=== PATIENT | male | born 1950 | race Asian ===

== ENCOUNTER 2020-02-20 09:29 | Day surgery (SDC) | payer OTHER ==
[2020-02-14 16:25] VITALS: BMI 22.8
[~2020-02-20 09:29] MED LIST: LACTATED RINGERS 1,000 ML IV SCH
[2020-02-20 10:00] VITALS: TEMP 97.3
[2020-02-20] MEDS ORDERED: PROPOFOL 10 MG/ML 20 ML VIAL IV ONE (11:07)
--- NOTE | 2020-02-20 11:34 | P.PCN ---
Date of Procedure: 02/20/20 Description of Procedure: BRIEF HISTORY: Patient is a 69-year-old male presenting for outpatient colonoscopy for evaluation of GI bleed. Denies any abdominal pain, change in bowel habits. Did recently undergo surgical repair of a perforated ulcer in 09/2019. Remote history of colonoscopy approximately 10 years ago. PROCEDURE PERFORMED: Colonoscopy with polypectomy. PREOPERATIVE DIAGNOSIS: .GI bleed, remote history of colonoscopy approximately 10 years ago ESTIMATED BLOOD LOSS: Minimal. IV sedation per Anesthesia. PROCEDURE: After informed consent was obtained, the patient, was brought into the endoscopy unit. IV sedation was administered by Anesthesia under continuous monitoring. Digital rectal examination was normal. Initially the Olympus CF-190 flexible video colonoscope was then inserted in the rectum, gradually advanced into the cecum without any difficulty. Careful examination was performed as the scope was gradually being withdrawn. Ileocecal valve and the appendiceal orifice were visualized and appeared normal. Prep was excellent. Mucosa of the cecum, ascending colon, transverse colon, descending colon, sigmoid colon, and rectum appeared normal. A few scattered diverticula were noted in the sigmoid colon. 3 diminutive polyps measuring 1-2 mm in size removed from the sigmoid colon. Retroflexion was performed in the rectum and no lesions were seen, low-grade internal hemorrhoids noted . The patient tolerated the procedure well. IMPRESSION: 3 diminutive polyps removed from the sigmoid colon with cold forcep polypectomy. Mild sigmoid diverticulosis. Low-grade internal hemorrhoids. RECOMMENDATIONS: Findings of this examination were discussed with the patient. Okay to resume diet. Okay to resume medications. Await pathology from polypectomies. Would recommend repeat colonoscopy in 7 years given diminutive colon polyps, pending pathology from polypectomies.
[2020-02-20 11:38] VITALS: RESP 16
[2020-02-20 12:05] VITALS: BP 102/69; PULSE 76
== END 2020-02-20 12:15 | disposition home or self-care (01) ==
LOC: ORWHC2ENDO 09:29
PROVIDERS: ATTEND Internal Medicine
DX: D12.5 Benign neoplasm of sigmoid colon (principal); K57.30 Diverticulosis of large intestine without perforation or abscess without bleeding; K64.8 Other hemorrhoids; Z88.0 Allergy status to penicillin; Z98.890 Other specified postprocedural states; Z87.891 Personal history of nicotine dependence; I10 Essential (primary) hypertension; E78.5 Hyperlipidemia, unspecified; K21.9 Gastro-esophageal reflux disease without esophagitis; G40.89 Other seizures; Z79.899 Other long term (current) drug therapy
CPT/HCPCS: 45380; 88305; J2704

== ENCOUNTER 2020-11-05 07:55 | Emergency (ER) | payer OTHER ==
[2020-11-05 07:59] VITALS: TEMP 97.7
--- NOTE | 2020-11-05 08:14 | ED ---
Upper Extremity HPI - General Chief Complaint: Extremity Injury, Upper Stated Complaint: L Shoulder Pain Time Seen by Provider: 11/05/20 08:00 Source: patient, RN notes reviewed Mode of arrival: ambulatory Limitations: no limitations - History of Present Illness Initial Comments: This is a 70-year-old male presents emergency Department chief complaint left shoulder pain for last 6 months. Patient states that he had no exact injury. Patient states that it just started becoming sore and states it is worse with certain movements. Patient states that someone hugged him on Wednesday and states that he had increase in pain. Patient is right-hand dominant denies any neck or head pain. No chest pain or shortness of breath. Patient does not have any p ain at rest states only with certain movements. Denies any paresthesias pain starts his left shoulder secondary into his left bicep. - Related Data Home Medications Medication Instructions Recorded Confirmed No Known Home Medications 02/14/20 02/20/20 Allergies Allergy/AdvReac Type Severity Reaction Status Date / Time Penicillins Allergy Rash/Hives Verified 11/05/20 07:59 Review of Systems ROS Statement: Those systems with pertinent positive or pertinent negative responses have been documented in the HPI. ROS Other: All systems not noted in ROS Statement are negative. Past Medical History Past Medical History: Pneumonia Additional Past Medical History / Comment(s): 10/09/19 Had Perforated ulcer, influenza, double pneumonia. History of Any Multi-Drug Resistant Organisms: None Reported Additional Past Surgical History / Comment(s): Repair perforated stomach ulcer 09/2019. Cyst exc lower spine. Past Anesthesia/Blood Transfusion Reactions: No Reported Reaction Smoking Status: Former smoker Past Alcohol Use History: None Reported Past Drug Use History: None Reported - Past Family History Mother Family Medical History: No Reported History General Exam Limitations: no limitations General appearance: alert, in no apparent distress Head exam: Present: atraumatic, normocephalic, normal inspection Neck exam: Present: normal inspection, full ROM. Absent: tenderness, meningismus, lymphadenopathy Respiratory exam: Present: normal lung sounds bilaterally. Absent: respiratory distress, wheezes, rales, rhonchi, stridor Cardiovascular Exam: Present: regular rate, normal rhythm, normal heart sounds. Absent: systolic murmur, diastolic murmur, rubs, gallop, clicks Extremities exam: Present: other (Left shoulder is mild tenderness palpation pain with impingement apprehension. Patient pain with external rotation, pain with internal rotation behind back. Neurovascular intact) Back exam: Present: normal inspection, full ROM. Absent: tenderness, paraspinal tenderness, vertebral tenderness Neurological exam: Present: alert, oriented X3, CN II-XII intact, reflexes normal. Absent: motor sensory deficit Skin exam: Present: warm, dry, intact, normal color. Absent: rash Course Vital Signs 11/05/20 07:56 Temperature 97.7 F Pulse Rate 94 Respiratory 18 Rate Blood Pressure 173/89 O2 Sat by Pulse 97 Oximetry Medical Decision Making - Medical Decision Making X-rays shows some osteoarthritis. Patient symptoms more concerning for rotator cuff syndrome. Patient follow-up with orthopedics. Return parameters discussed. Disposition Clinical Impression: Rotator cuff syndrome of left shoulder Disposition: HOME SELF-CARE Condition: Stable Instructions (If sedation given, give patient instructions): Rotator Cuff Injury (ED) Additional Instructions: Please return to the Emergency Department if symptoms worsen or any other concerns. Is patient prescribed a controlled substance at d/c from ED?: No Referrals: [facility],Clinic [Primary Care Provider] - 1-2 days Javon Serna MD [STAFF PHYSICIAN] - 1-2 days Time of Disposition: 09:05
--- NOTE | 2020-11-05 08:28 | XR ---
EXAMINATION TYPE: XR shoulder complete LT DATE OF EXAM: 11/05/2020 Comparison: None Clinical History: 70-year-old male pain Findings: There is mild degenerative change at the AC joint with marginal spurring. Mild joint space narrowing on the Grashey view. Subacromial space is preserved. No tendinous or bursal calcification seen. No ac brooke fracture, subluxation, dislocation seen. Impression: Mild AC joint OA. No acute osseous abnormality seen.
[2020-11-05 09:23] VITALS: BP 155/79; PULSE 75; RESP 20
== END 2020-11-05 09:23 | disposition home or self-care (01) ==
LOC: EC 07:55
DX: M75.102 Unspecified rotator cuff tear or rupture of left shoulder, not specified as traumatic (principal); Z87.891 Personal history of nicotine dependence

== ENCOUNTER 2020-12-28 15:39 | Emergency (ER) | payer OTHER ==
[2020-12-28] MEDS ORDERED: MECLIZINE 12.5 MG TAB PO STA ×2 (16:03→17:52)
[2020-12-28 16:18] LABS: Basophils # (A) 0.1 k/uL (0-0.2); Basophils % (A) 1 %; Eosinophils # (A) 0.4 k/uL (0-0.7); Eosinophils % (A) 5 %; HCT 47.6 % (39.0-53.0); HGB 16.2 gm/dL (13.0-17.5); Lymphocytes # (A) 2.2 k/uL (1.0-4.8); Lymphocytes % (A) 31 %; MCH 30.5 pg (25.0-35.0); MCV 89.8 fL (80.0-100.0); Mean Platelet Volume 7.5; Monocytes # (A) 0.6 k/uL (0-1.0); Monocytes % (A) 9 %; Neutrophils # (A) 3.7 k/uL (1.3-7.7); Neutrophils % (A) 52 %; Platelet Count 192 k/uL (150-450); RDW 13.9 % (11.5-15.5); WBC 7.1 k/uL (3.8-10.6)
--- NOTE | 2020-12-28 16:20 | ED ---
Dizziness HPI - General Chief Complaint: Dizziness Stated Complaint: dizziness/light headed Time Seen by Provider: 12/28/20 15:45 Source: patient Mode of arrival: ambulatory Limitations: no limitations - History of Present Illness Initial Comments: 's is a 70-year-old male with a history of peptic ulcer disease and perforated ulcer in the past presents emergency department for 2 weeks worth of dizziness and diaphoresis. The patient states that he's had intermittent episodes of dizziness he states is worse with certain head movements and position changes. He states that he also has been having intermittent episodes of diaphoresis. He states that diaphoresis seems to be random as well however sometimes is related to exertion but also states he gets sweaty when he lays down at night and does not exert himself. He denies any difficult he was speech or swallowing. No focal weakness in arm or leg. No numbness or tingling. He denies any chest pain or shortness of breath. He reportedly saw his clasp machine operator earlier in the week and is scheduled for a stress test later in the month. He states that he also has a CAT scan scheduled and some [facility] however when his symptoms persisted decided come emergency department for further evaluation. Patient denies any other acute complaints. - Related Data Previous Rx's Medication Instructions Recorded Meclizine [Antivert] 25 mg PO TID PRN #20 tab 12/28/20 Allergies Allergy/AdvReac Type Severity Reaction Status Date / Time Penicillins Allergy Rash/Hives Verified 12/28/20 15:43 Review of Systems ROS Statement: Those systems with pertinent positive or pertinent negative responses have been documented in the HPI. ROS Other: All systems not noted in ROS Statement are negative. Past Medical History Past Medical History: Pneumonia Additional Past Medical History / Comment(s): 10/09/19 Had Perforated ulcer, influenza, double pneumonia, History of Any Multi-Drug Resistant Organisms: None Reported Additional Past Surgical History / Comment(s): Repair perforated stomach ulcer 09/2019. Cyst exc lower spine. Past Anesthesia/Blood Transfusion Reactions: No Reported Reaction Smoking Status: Former smoker Past Alcohol Use History: None Reported Past Drug Use History: None Reported - Past Family History Mother Family Medical History: No Reported History General Exam - General Exam Comments Initial Comments: Constitutional: Awake alert Appears comfortable Head: Normocephalic atraumatic Eyes: no conjunctival injection No scleral icterus EOMI, no nystagmus, pupils are 4 mm and reactive bilaterally Neck: No JVD Supple Heart: Regular rate rhythm normal S1-S2 no murmurs Lungs: Clear to auscultation bilaterally No wheezing No rales Abdomen: Soft nondistended nontender Extremities: Non edematous DP pulses intact Radial pulses intact Neuro: A&Ox3, cranial nerves II through XII are grossly intact, 5 out of 5 strength in upper and lower extremities bilateral, normal finger to nose and heel to spencer testing, negative Katy-Hallpike bilaterally No focal neurologic deficits Psych: Appropriate mood and affect Limitations: no limitations Course Vital Signs 12/28/20 12/28/20 12/28/20 15:41 18:01 18:07 Temperature 97.4 F L 98.4 F 97.9 F Pulse Rate 73 75 71 Respiratory 16 18 16 Rate Blood Pressure 119/70 110/58 128/79 O2 Sat by Pulse 96 96 98 Oximetry EKG Findings - EKG Comments: EKG Findings:: EKG is showing sinus bradycardia with a rate of 56. There are no abnormal ST 7 changes or tumors. QTC is 413. Other intervals normal. No ectopy. Medical Decision Making - Medical Decision Making This is a 70-year-old male who came to the emergency department for the above symptoms. Vision and no focal neurologic findings on examination. He was not diaphoretic in the emergency department. EKG was reviewed and unremarkable. Full workup done which did show an elevation in his creatinine however no evidence for cardiac etiology with a troponin that was negative. I suspect that the patient's been having symptoms for over 2 weeks that is correct markers may be elevated. TSH was within normal limits. CT of the head was unremarkable as well. He seemed to improve after Antivert and going to send him home with some of this as well. He has good follow-up and has some testing later in the week including MRI of his left shoulder and a CT of his chest. He also has a stress test scheduled for the end of the month. I told the patient that if he devel oped any worsening or changing symptoms she can return emergency Department. Otherwise follow-up closely with his primary doctor in the next few days and get these test performed. All questions were answered. - Lab Data Result diagrams: 12/28/20 16:09 12/28/20 16:09 Lab Results 05/04/1212/28/20 12/28/20 Range/Units 16:09 16:09 16:09 WBC 7.1 (3.8-10.6) k/uL RBC 5.30 (4.30-5.90) m/uL Hgb 16.2 (13.0-17.5) gm/dL Hct 47.6 (39.0-53.0) % MCV 89.8 (80.0-100.0) fL MCH 30.5 (25.0-35.0) pg MCHC 34.0 (31.0-37.0) g/dL RDW 13.9 (11.5-15.5) % Plt Count 192 (150-450) k/uL MPV 7.5 Neutrophils % 52 % Lymphocytes % 31 % Monocytes % 9 % Eosinophils % 5 % Basophils % 1 % Neutrophils # 3.7 (1.3-7.7) k/uL Lymphocytes # 2.2 (1.0-4.8) k/uL Monocytes # 0.6 (0-1.0) k/uL Eosinophils # 0.4 (0-0.7) k/uL Basophils # 0.1 (0-0.2) k/uL PT 11.1 (9.0-12.0) sec INR 1.1 (<1.2) APTT 25.6 (22.0-30.0) sec Sodium 141 (137-145) mmol/L Potassium 4.8 (3.5-5.1) mmol/L Chloride 107 (98-107) mmol/L Carbon Dioxide 25 (22-30) mmol/L Anion Gap 9 mmol/L BUN 15 (9-20) mg/dL Creatinine 1.72 H (0.66-1.25) mg/dL Est GFR (CKD-EPI)AfAm 46 (>60 ml/min/1.73 sqM) Est GFR (CKD-EPI)NonAf 40 (>60 ml/min/1.73 sqM) Glucose 95 (74-99) mg/dL Calcium 9.7 (8.4-10.2) mg/dL Magnesium 1.7 (1.6-2.3) mg/dL Total Bilirubin 0.7 (0.2-1.3) mg/dL AST 28 (17-59) U/L ALT 20 (4-49) U/L Alkaline Phosphatase 45 (38-126) U/L Troponin I (0.000-0.034) ng/mL Total Protein 7.1 (6.3-8.2) g/dL Albumin 4.1 (3.5-5.0) g/dL TSH 1.370 (0.465-4.680) mIU/L 12/28/20 Range/Units 16:09 WBC (3.8-10.6) k/uL RBC (4.30-5.90) m/uL Hgb (13.0-17.5) gm/dL Hct (39.0-53.0) % MCV (80.0-100.0) fL MCH (25.0-35.0) pg MCHC (31.0-37.0) g/dL RDW (11.5-15.5) % Plt Count (150-450) k/uL MPV Neutrophils % % Lymphocytes % % Monocytes % % Eosinophils % % Basophils % % Neutrophils # (1.3-7.7) k/uL Lymphocytes # (1.0-4.8) k/uL Monocytes # (0-1.0) k/uL Eosinophils # (0-0.7) k/uL Basophils # (0-0.2) k/uL PT (9.0-12.0) sec INR (<1.2) APTT (22.0-30.0) sec Sodium (137-145) mmol/L Potassium (3.5-5.1) mmol/L Chloride (98-107) mmol/L Carbon Dioxide (22-30) mmol/L Anion Gap mmol/L BUN (9-20) mg/dL Creatinine (0.66-1.25) mg/dL Est GFR (CKD-EPI)AfAm (>60 ml/min/1.73 sqM) Est GFR (CKD-EPI)NonAf (>60 ml/min/1.73 sqM) Glucose (74-99) mg/dL Calcium (8.4-10.2) mg/dL Magnesium (1.6-2.3) mg/dL Total Bilirubin (0.2-1.3) mg/dL AST (17-59) U/L ALT (4-49) U/L Alkaline Phosphatase (38-126) U/L Troponin I <0.012 (0.000-0.034) ng/mL Total Protein (6.3-8.2) g/dL Albumin (3.5-5.0) g/dL TSH (0.465-4.680) mIU/L Disposition Clinical Impression: Vertigo, Sweating Disposition: HOME SELF-CARE Condition: Stable Instructions (If sedation given, give patient instructions): Dizziness (ED) Prescriptions: Meclizine [Antivert] 25 mg PO TID PRN #20 tab PRN Reason: dizzy Is patient prescribed a controlled substance at d/c from ED?: No Referrals: [facility],Clinic [Primary Care Provider] - 1-2 days
[2020-12-28 16:29] LABS: INR 1.1 (<1.2); Partial Thromboplastin Time 25.6 sec (22.0-30.0); Prothrombin Time 11.1 sec (9.0-12.0)
[2020-12-28 16:31] LABS: Albumin 4.1 g/dL (3.5-5.0); Calcium 9.7 mg/dL (8.4-10.2); Magnesium 1.7 mg/dL (1.6-2.3); Potassium 4.8 mmol/L (3.5-5.1); Total Bilirubin 0.7 mg/dL (0.2-1.3); Total Protein 7.1 g/dL (6.3-8.2)
--- NOTE | 2020-12-28 16:36 | CT ---
EXAMINATION TYPE: CT brain wo con DATE OF EXAM: 12/28/2020 COMPARISON: None HISTORY: Dizziness, lightheaded. CT DLP: 1139.4 mGycm Automated exposure control for dose reduction was used. FINDINGS: The ventricles, basal cisterns and sulci over the convexities are moderately enlarged consistent with moderate generalized atrophy. There is no mass effect or shift of midline structures. There is no acute intra or extra-axial hemorrhage. No abnormal density is seen throughout the brain p arenchyma. Grossly the posterior fossa is unremarkable. The intraorbital contents appear normal and symmetric. The calvarium is intact. Paranasal sinuses and mastoid air cells are well aerated. Impression: Generalized atrophy appropriate for the patient's age. There is no acute bleed or mass effect.
[2020-12-28 18:08] VITALS: BP 128/79; PULSE 71; RESP 16; TEMP 97.9
== END 2020-12-28 18:02 | disposition home or self-care (01) ==
LOC: EC 15:39 → SUPCPDRO 15:39 → EC 18:02
DX: R42 Dizziness and giddiness (principal); R61 Generalized hyperhidrosis; Z88.0 Allergy status to penicillin; Z87.891 Personal history of nicotine dependence
CPT/HCPCS: 36415; 70450; 80053; 83735; 84443; 84484; 85025; 85610; 85730; 93005; 99284

== ENCOUNTER → 2021-01-02 | Outpatient (CLI) | payer OTHER ==
--- NOTE | 2021-01-02 07:45 | US ---
EXAMINATION TYPE: US duplex aorta DATE OF EXAM: 01/02/2021 COMPARISON: NONE CLINICAL HISTORY: Z87.891 Personal history of nicotine dependence. screening EXAM MEASUREMENTS: Abdominal Aorta: Proximal: 1.7 x 1.5cm Mid: 1.5 x 1.3cm Distal: 1.9 x 2.0cm Bifurcation: RT: 1.1 x 0.9cm LT: 1.0 x 0.8cm No evidence of AAA at this time. slight bulging noted distally IMPRESSION: No evidence of AAA at this time.
--- NOTE | 2021-01-03 13:29 | CTL ---
EXAMINATION TYPE: CT Low Dose Lung DATE OF EXAM ORDERED: 01/02/2021 HISTORY: Z 87.891. Lung cancer screening CT DLP: [address] CTDI: 2.03 mGy Automated exposure control for dose reduction was used. SCREENING VISIT: 1 COMPARISON: Chest x-ray 01/22/2020 TECHNIQUE: Low dose computed tomography scan was performed through the chest at 1 mm thick sections a nd reconstructed images in the coronal plane at [address] DIAGNOSTIC QUALITY: Satisfactory FINDINGS: There is a left upper lobe lung mass present with cavitary appearance abutting the fissure with some spiculated margins extending to the left lateral pleural margin overall measuring approximately 3.8 c m in transverse dimension by 2.3 cm x 2.5 cm in cephalad to caudal dimension in the left upper lobe. Spiculations also extending medially to the mediastinum. Additionally in the lingula there is a soft tissue mass with spiculated margins extending to the pleura and mediastinum measuring approximately 4 .7 cm in AP dimension by 4.5 centimeters in the transverse dimension by 3.7 cm in cephalad to caudal dimension. There are multiple lung nodules present, right lower lobe, axial image 205 shows a soft tissue nodule measuring 8 mm in the subpleural location, within the right lower lobe on axial image #180 to and 18 1 there is a nodule measuring 14 mm with some central cavitation, left lower lobe nodule shows possib le central cavitation and measures 9 mm to 10 mm and axial image 180. Right upper lobe adjacent to th e fissure medially axial image 131 shows a cavitary nodule measuring 8 mm, axial image 121 shows a ce ntral cavitary lesion measuring 8 to 9 mm. Cavitary lesion with pleural extension on axial image #111 measures 15 mm. Right upper lobe axial image 78 shows a nodule measuring 9 mm in the right upper lob e. Possible smaller nodule axial image 86 adjacent to the superior vena cava. Right lower lobe shows a spiculated nodule axial image 2:15 measuring 1 cm abutting the major fissure. Left lower lobe nodul e on axial image 162 measures 6 mm, additional nodule axial image 167 show central cavitation and giovani sures 5 mm, axial image 237 shows a nodule measuring 6 mm in the right lower lobe. LUNGS: COPD: Severity: Moderate Fibrosis: Severity: Mild Lymph nodes: None Other findings: RIGHT PLEURAL SPACE: Effusion: None Calcification: None Thickening: None Pneumothorax: None LEFT PLEURAL SPACE: Effusion: None Calcification: None Thickening: None Pneumothorax: None HEART: Heart Size: Normal Coronary calcification: Mild Pericardial effusion: Minimal pericardial fluid OTHER FINDINGS: Upper abdomen: Small hiatal hernia is noted. Bony thorax: There are degenerative disc changes. 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
== END | disposition home or self-care (01) ==
LOC: RADUSWWP 07:10
DX: Z12.2 Encounter for screening for malignant neoplasm of respiratory organs (principal); Z13.6 Encounter for screening for cardiovascular disorders; Z87.891 Personal history of nicotine dependence
CPT/HCPCS: 71271; 93979

== ENCOUNTER → 2021-01-02 | Outpatient (CLI) | payer OTHER | END | disposition home or self-care (01) | LOC: RADMRIMAIN 07:33 | PROVIDERS: ATTEND Nurse Practitioner Acute Care | DX: Z53.9 Procedure and treatment not carried out, unspecified reason (principal) ==

== ENCOUNTER → 2021-01-10 | Outpatient (CLI) | payer OTHER ==
--- NOTE | 2021-01-13 10:24 | PE ---
EXAMINATION TYPE: PET CT fusion skull to thigh DATE OF EXAM: 01/10/2021 COMPARISON: Low-dose lung screening CT 8 days ago HISTORY: Lung mass, abnormal CT. TECHNIQUE: Following the intravenous administration of 9.81. mCi of F-18 FDG, whole body images are performed from the skull base to the midthigh. Images are reviewed on the computer in the coronal, a xial, and sagittal planes. Reconstructed rotating images are created on independent workstation and reviewed on the computer. A localization and attenuation correction CT is performed in conjunction with the PET scan. Blood glucose level equals 91 SCAN: Initial Scan FINDINGS: SKULL BASE AND NECK: No areas of abnormal hypermetabolic uptake. CHEST, MEDIASTINUM, AND HILAR REGION: Redemonstration of mild underlying emphysematous change. Persis tent thick-walled cavitary posterior left upper lobe 3.6 x 2.1 cm lesion axial image 77, max SUV is 3 .93. More suspicious anterior left midlung lobulated 4.6 x 4.1 cm hypermetabolic mass axial image 95, max SUV is 7.03. There are 3 suspicious right lung nodules redemonstrated one with cavitation axial images 84, 102, an d 110 that are near 1.0 cm in size. No suspicious hypermetabolic uptake. Abnormal 3.2 x 2.1 cm AP window hypermetabolic lymph note axial image 82, max SUV is 4.47. No additional areas of abnormal hypermetabolic uptake. ABDOMEN AND PELVIS: Normal excretion. No adrenal masses. No areas of abnormal hypermetabolic uptake. OSSEOUS STRUCTURES: Increased uptake left shoulder region presumed postinflammatory. Correlate clinic ally. No areas of suspicious increased hypermetabolic uptake. OTHER CT: Nasal septum slightly deviated to left of midline. Some coronary artery calcification redem onstrated. Moderate calcified plaque of the aorta extends into branch vessels. Enlarged prostate consistent with BPH. Moderate disc space narrowing L2-L3 level. Mild to moderate calcified plaque of the aorta extends int o branch vessels IMPRESSION: Anterior left midlung mass with hypermetabolic enlarged AP window lymph node consistent w ith neoplasm. Other findings could be related to high stage neoplasm, bilateral multilobar involvemen t versus possible infectious etiology/septic embolism on background neoplasm. No metastatic disease o utside the thorax noted.
== END | disposition home or self-care (01) ==
LOC: RADPETMAIN 14:44
PROVIDERS: ATTEND Internal Medicine
DX: R91.8 Other nonspecific abnormal finding of lung field (principal)
CPT/HCPCS: 78815; A9552

== ENCOUNTER → 2021-02-07 | Outpatient (CLI) | payer OTHER ==
--- NOTE | 2021-02-07 16:34 | CT ---
EXAMINATION TYPE: CT brain wo con DATE OF EXAM: 02/07/2021 COMPARISON: 12/28/2020 INDICATION: Dizziness and giddiness. DLP: 1195.10 mGycm, Automated exposure control for dose reduction was used. CONTRAST: None CT of the brain is performed utilizing 3 mm thick sections through the posterior fossa and 3 mm thick sections through the remaining calvarium. Study is performed within 24 hours of arrival to the hosp ital. No abnormal hyperdensity is present to suggest an acute intracranial hemorrhage. No mass lesion is evident. No acute infarcts are evident. There is a small rounded hypodensity within the left brainstem, series 3 image 19 not clearly identified previous. Small lacunar infarct be considered. However, this may b e artifact. Consider MRI brain for additional evaluation. Ventricles and sulci are mildly prominent for the patient age. Paranasal sinuses and mastoid air cells within the [id number] are clear. IMPRESSIONS: 1. Small hypodensity within the left brainstem may be an artifact. Lacunar infarct could be conside red. MRI could be performed for additional evaluation. A Jaroso level critical message alert has been initiated for Figueroa Aguilar MD via the [employer] Critical Results System on 02/07/2021 4:32 PM. This message alert has been sent to Figueroa Aguilar MD via the preferences provided by the clinician for the receipt of Radiology Critical Findings. Message ID [id number].
== END | disposition home or self-care (01) ==
LOC: RADCTMAIN 14:04
PROVIDERS: ATTEND Internal Medicine
DX: R42 Dizziness and giddiness (principal)
CPT/HCPCS: 70450; 82565; 84520

== ENCOUNTER 2021-02-28 09:59 | Day surgery (SDC) | payer OTHER ==
[2021-02-27 10:34] VITALS: BMI 26.7
[~2021-02-28 09:59] MED LIST changes: +ALBUTEROL NEB (CONC) 2.5 MG/0.5 ML INHALATION ONE; +LIDOCAINE 2% (PF) 20 MG/ML 5 ML VIAL INHALATION ONE; +LIDOCAINE VISCOUS 300 MG/15 ML CUP MUCOUS MEM ONE; +SODIUM CHLORIDE 0.9% 1,000 ML IV SCH
--- NOTE | 2021-02-28 12:04 | CT ---
EXAMINATION TYPE: CT Chest luis Ernst Protocol DATE OF EXAM: 02/28/2021 COMPARISON: Head CT dated 01/10/2021 HISTORY: Bronchial navigation. CT DLP: 636.[address] of the chest was performed with lung and mediastinal window settings submitted. The la ck of contrast limits evaluation of the vascular, mediastinal and parenchymal structures including th e upper abdomen. LUNGS: Left upper lobe pulmonary mass measures 3.8 x 2.3 cm and demonstrates internal cavitation. Add itional mass is noted left upper lobe anteriorly perihilar region measuring 5.0 x 4.3 cm. Postobstruc tive pneumonitis noted. Right lower lobe pulmonary nodule measuring 1.2 cm. Right lower lobe pulmonar y nodule also measures 1.6 cm. Right upper lobe pulmonary nodule pleural-based and measures 1.7 cm. R ight apical nodule measures 9 mm. MEDIASTINUM/ANGY: Thoracic aorta is of normal caliber with limited evaluation given lack of contrast . The heart is not enlarged. Conglomerate mass AP window is compatible with adenopathy measuring 2.6 x 2.2 cm. UPPER ABDOMEN: No significant abnormality is seen. OTHER: No significant other abnormality. IMPRESSION: 1. Multiple pulmonary nodules and masses compatible with malignancy either primary or secondary in n ature. AP window adenopathy as noted.
[2021-02-28] MEDS ORDERED: fentaNYL (PF) 50 MCG/ML 2 ML AMP ONE (13:16)
[2021-02-28] MEDS ORDERED: SUCCINYLCHOLINE CHLORIDE 100 MG/5 ML SYR IV ONE (13:16)
[2021-02-28] MEDS ORDERED: ePHEDrine SULFATE/0.9% NACL/PF 50 MG/5 ML SYRINGE IV ONE (13:16)
[2021-02-28] MEDS ORDERED: LIDOCAINE 1% INJ 10MG/ML (20 ML MDV) ONE (13:16)
[2021-02-28] MEDS ORDERED: PROPOFOL 10 MG/ML 20 ML VIAL IV ONE (13:16)
--- NOTE | 2021-02-28 14:12 | P.PCN ---
Date of Procedure: 02/28/21 Preoperative Diagnosis: Left upper lobe mass 2, mediastinal lymphadenopathy Postoperative Diagnosis: Left upper lobe mass Anesthesia: GETA Surgeon: Shyanne Colbert Estimated Blood Loss (ml): 0 Pathology: other Condition: stable Disposition: same day Operative Findings: 1 Navigational bronchoscopy 2 transbronchial biopsy of the left upper lobe mass 1 (anterior segment), left upper lobe mass 2 (apicoposterior segment) 3 transbronchial brushing of the left upper lobe mass 1/anterior segment and left upper lobe mass to/apicoposterior segment 4 transbronchial needle aspirate of right paratracheal lymph node, station 4L 5 bronchial lavage of the left upper lobe Anesthesia: GETA Surgeon: Shyanne Colbert Tuck Pointer Helper #1:Ariela Atkinson Estimated Blood Loss (ml): 0 Pathology: other Condition: stable Disposition: same day Operative Findings: Indication, left upper lobe mass, left paratracheal lymph node station for L This procedure was done under general anesthesia. There is a navigational bronchoscopy. The patient initially had a CAT scan of the chest utilizing the [employer] protocol. The images were uploaded into the software and the right middle lobe mass was identified and appropriate calibrations and mapping was done. Following that, all of this information was uploaded into the [employer] navigational tower. The patient was brought into the endoscopy suite. The patient was intubated by ADMINISTRATIVE UNDERWRITER. The patient had a 8 ET tube placed and she was secured in place. Following that, flexible bronchoscope was introduced through the orotracheal tube and an airway inspection was done. The visualized airways included the mid and the distal trachea, bilateral mainstem bronchi, right upper lobe bronchus, bronchus intermedius, right middle lobe and right lower lobe bronchus and the various 10 segments on the right. Bronchoscope was moved to the left and the visualized airways included the left mainstem bronchus, left upper lobe bronchus and left lower lobe bronchus and the various 8 segments on the left. No evidence of any endobronchial lesions or tumors. No foreign bodies. No mucosal abnormalities identified. Using navigational guidance, the bronchoscope was directed to the left upper lobe. Using a navigational forceps, transbronchial biopsies of the left upper lobe anterior and left upper lobe apical posterior masses were done with great accuracy. Several biopsies were obtained. Following that, transbronchial transbronchial brushings of the the same lesions was done using navigational guidance. Following that, bronchoscope was moved to the distal trachea and using a 22 -gauge histology WORLEY needle biopsy of the left paratracheal lymph node was done, station 4 L. Total of 2 passes were taken. At the completion of the procedure, endobronchial lavage of the left upper lobe was done. The bronchoscope was wedged in the apical segment of the left upper lobe and a total of 80 mL's of fluid was administered and 20 mL was suctioned back. Aspirate was nonbloody. No complications. No evidence of an endobronchial bleeding. Therapeutic airway suctioning was done. Bronchoscope was removed. Patient was extubated and transferred to recovery in stable condition. Chest x-rays to follow to rule out any complications or pneumothorax.
[2021-02-28] MEDS ORDERED: SODIUM CHLORIDE 0.9% 500 ML 500 ML IV ONE (14:15)
[2021-02-28 14:34] VITALS: TEMP 96.8
--- NOTE | 2021-02-28 14:51 | XR ---
EXAMINATION TYPE: XR chest 1V portable DATE OF EXAM: 02/28/2021 HISTORY: post navigational bronch COMPARISON: None. TECHNIQUE: Single view of the chest is submitted. FINDINGS: Demonstrated are scattered senescent parenchymal change. Pulmonary nodules and masses described previously. No evidence for pneumothorax. The heart is stable. Hilar and mediastinal structures are within normal limits. Degenerative changes are seen of the dorsal spine. IMPRESSION: 1. Pulmonary nodules and masses described previously. No evidence for pneumothorax.
[2021-02-28 14:53] VITALS: RESP 16
[2021-02-28 15:32] VITALS: BP 146/81; PULSE 63
== END 2021-02-28 16:10 | disposition home or self-care (01) ==
LOC: ORWHC2ENDO 09:59
PROVIDERS: ATTEND Internal Medicine Critical Care Medicine
DX: Z88.0 Allergy status to penicillin (principal); K21.9 Gastro-esophageal reflux disease without esophagitis; J44.9 Chronic obstructive pulmonary disease, unspecified; I10 Essential (primary) hypertension; Z87.11 Personal history of peptic ulcer disease; Z87.09 Personal history of other diseases of the respiratory system; Z87.01 Personal history of pneumonia (recurrent); Z86.19 Personal history of other infectious and parasitic diseases; Z87.891 Personal history of nicotine dependence; Z79.899 Other long term (current) drug therapy
CPT/HCPCS: 87798 ×3; 87496; 87498; 88104; 87529; 88108; 88305; 88173; 88342; 87252; 87502; 87634; 88341; 87070; 87205; 87116; 87102; 87206; 71045; 71250; 31623; 31628; 31629; 31624; 31627; J2001; J3010; J0330; J2704; 31625; 31633

== ENCOUNTER → 2021-03-01 | Outpatient (CLI) | payer OTHER | END | disposition home or self-care (01) | DX: R42 Dizziness and giddiness (principal) ==

== ENCOUNTER 2021-10-06 12:03 | Inpatient (IN) | payer OTHER, MEDICARE ==
[2021-10-06] MEDS ORDERED: SODIUM CHLORIDE 0.9% 1,000 ML IV STA (16:26)
[2021-10-06] MEDS ORDERED: ONDANSETRON 4 MG/2 ML VIAL IVP STA (16:26)
[2021-10-06] MEDS ORDERED: SODIUM CHLORIDE 0.9% 500 ML 500 ML IV ONE (16:27)
--- NOTE | 2021-10-06 16:38 | ED ---
General Adult HPI - General Chief complaint: Weakness Stated complaint: weak/coughing up blood Time Seen by Provider: 10/06/21 16:17 Source: patient, family Mode of arrival: ambulatory Limitations: no limitations - History of Present Illness Initial comments: 71 year-old male patient diagnosed with adenocarcinoma of the left lung in , presents to the emergency department for evaluation of weakness, hemoptysis, and vomiting. Patient states that over the last 10 days he has become progressively more weak. He has been vomiting and is unable to keep down food or fluids. He reports dark "orange" colored urine. States he has been having diarrhea. Reports mild intermittent right upper quadrant abdominal pain. States he has been having bloody sputum with cough. Patient has not received treatment for his cancer, I believe he did have a consultation with Dr. Chi at [facility] at one point. He denies taking any medication for his symptoms. Denies fever or chills. States his mouth is extremely dry and he is very thirsty. He is considering being started on hospice. - Related Data Home Medications Medication Instructions Recorded Confirmed Diphenoxylate HCl/Atropine 1 tab PO QID PRN 10/06/21 10/06/21 [Lomotil 2.5-0.025 mg Tablet] Omeprazole 40 mg PO DAILY PRN 10/06/21 10/06/21 Ondansetron [Zofran] 4 mg PO QID PRN 10/06/21 10/06/21 Allergies Allergy/AdvReac Type Severity Reaction Status Date / Time Penicillins Allergy Rash/Hives Verified 10/06/21 16:52 Review of Systems ROS Statement: Those systems with pertinent positive or pertinent negative responses have been documented in the HPI. ROS Other: All systems not noted in ROS Statement are negative. Past Medical History Past Medical History: COPD, GERD/Reflux, Hypertension, Pneumonia Additional Past Medical History / Comment(s): states "lung mass" 10/09/19 Had Perforated ulcer, influenza, double pneumonia, lung and prostate cancer History of Any Multi-Drug Resistant Organisms: None Reported Additional Past Surgical History / Comment(s): Repair perforated stomach ulcer 09/2019. Cyst exc lower spine. Past Anesthesia/Blood Transfusion Reactions: No Reported Reaction Past Psychological History: Anxiety Smoking Status: Former smoker Past Alcohol Use History: None Reported Past Drug Use History: None Reported - Past Family History Mother Family Medical History: No Reported History General Exam Limitations: no limitations General appearance: alert, in no apparent distress, other (This is a well- developed, thin appearing adult male in no acute distress.) Eye exam: Present: PERRL, EOMI, scleral icterus (Bilateral). Absent: conjunctival injection, periorbital swelling ENT exam: Present: normal exam, normal oropharynx, mucous membranes dry Respiratory exam: Present: normal lung sounds bilaterally. Absent: respiratory distress, wheezes, rales, rhonchi, stridor Cardiovascular Exam: Present: normal rhythm, tachycardia, normal heart sounds. Absent: systolic murmur, diastolic murmur, rubs, gallop, clicks GI/Abdominal exam: Present: soft, normal bowel sounds. Absent: distended, tenderness, guarding, rebound, rigid Neurological exam: Present: alert, oriented X3, CN II-XII intact Psychiatric exam: Present: normal affect, normal mood Skin exam: Present: warm, dry, intact, normal color. Absent: rash Course Vital Signs 10/06/21 12:12 Temperature 98 F Pulse Rate 129 H Respiratory 18 Rate Blood Pressure 125/74 O2 Sat by Pulse 92 L Oximetry Medical Decision Making - Medical Decision Making 71-year-old male patient diagnosed with adenocarcinoma of the left long December 2020 presents for evaluation of increased weakness and vomiting over the last 10 days. Physical examination did reveal scleral icterus and jaundice. Labs reviewed and did reveal an INR 1.2, sodium 136, potassium 5.4, CO2 14, BUN 30, creatinine 2.33, lactic acid 4.9, bilirubin 8.0, AST 399, a LT 165, alk phos 1060. Ultrasound of the right upper quadrant was obtained and did show diffuse heterogeneity of the liver consistent with hepatic metastatic disease. Gallbladder wall thickening consistent with cholecystitis. I did discuss the findings and results with the patient informed him that his cancer is most likely spread to his rib bone and his liver. Patient again reaffirms that he would like to start hospice. He does not want to have surgery to have his gallb ladder taken out. He does not want treatment for his cancer. He does not feel comfortable going home, states he cannot care for himself. He would like to be placed in an ECF. My attending is Dr. Sunshine. - Lab Data Result diagrams: 10/06/21 17:21 10/06/21 17:21 Lab Results 10/06/21 10/06/21 10/06/21 Range/Units 17:21 17:21 17:21 WBC 9.3 (3.8-10.6) k/uL RBC 5.45 (4.30-5.90) m/uL Hgb 16.5 (13.0-17.5) gm/dL Hct 52.2 (39.0-53.0) % MCV 95.7 (80.0-100.0) fL MCH 30.2 (25.0-35.0) pg MCHC 31.5 (31.0-37.0) g/dL RDW 16.2 H (11.5-15.5) % Plt Count 193 (150-450) k/uL MPV 8.7 Neutrophils % 81 % Lymphocytes % 10 % Monocytes % 7 % Eosinophils % 1 % Basophils % 0 % Neutrophils # 7.6 (1.3-7.7) k/uL Lymphocytes # 0.9 L (1.0-4.8) k/uL Monocytes # 0.6 (0-1.0) k/uL Eosinophils # 0.1 (0-0.7) k/uL Basophils # 0.0 (0-0.2) k/uL Anisocytosis Slight PT 12.3 H (9.0-12.0) sec INR 1.2 H (<1.2) APTT 44.6 H (22.0-30.0) sec Sodium 136 L (137-145) mmol/L Potassium 5.4 H (3.5-5.1) mmol/L Chloride 102 (98-107) mmol/L Carbon Dioxide 14 L (22-30) mmol/L Anion Gap 20 mmol/L BUN 30 H (9-20) mg/dL Creatinine 2.33 H (0.66-1.25) mg/dL Est GFR (CKD-EPI)AfAm 32 (>60 ml/min/1.73 sqM) Est GFR (CKD-EPI)NonAf 28 (>60 ml/min/1.73 sqM) Glucose 90 (74-99) mg/dL Lactic Ac Sepsis Rflx Plasma Lactic Acid Gustavo (0.7-2.0) mmol/L Calcium 9.8 (8.4-10.2) mg/dL Magnesium 2.2 (1.6-2.3) mg/dL Total Bilirubin 8.0 H (0.2-1.3) mg/dL AST 399 H (17-59) U/L ALT 165 H (4-49) U/L Alkaline Phosphatase 1060 H (38-126) U/L Troponin I (0.000-0.034) ng/mL Total Protein 6.8 (6.3-8.2) g/dL Albumin 3.2 L (3.5-5.0) g/dL 10/06/21 10/06/21 10/06/21 Range/Units 17:21 17:21 17:45 WBC (3.8-10.6) k/uL RBC (4.30-5.90) m/uL Hgb (13.0-17.5) gm/dL Hct (39.0-53.0) % MCV (80.0-100.0) fL MCH (25.0-35.0) pg MCHC (31.0-37.0) g/dL RDW (11.5-15.5) % Plt Count (150-450) k/uL MPV Neutrophils % % Lymphocytes % % Monocytes % % Eosinophils % % Basophils % % Neutrophils # (1.3-7.7) k/uL Lymphocytes # (1.0-4.8) k/uL Monocytes # (0-1.0) k/uL Eosinophils # (0-0.7) k/uL Basophils # (0-0.2) k/uL Anisocytosis PT (9.0-12.0) sec INR (<1.2) APTT (22.0-30.0) sec Sodium (137-145) mmol/L Potassium (3.5-5.1) mmol/L Chloride (98-107) mmol/L Carbon Dioxide (22-30) mmol/L Anion Gap mmol/L BUN (9-20) mg/dL Creatinine (0.66-1.25) mg/dL Est GFR (CKD-EPI)AfAm (>60 ml/min/1.73 sqM) Est GFR (CKD-EPI)NonAf (>60 ml/min/1.73 sqM) Glucose (74-99) mg/dL Lactic Ac Sepsis Rflx Y Plasma Lactic Acid Gustavo 4.9 H* (0.7-2.0) mmol/L Calcium (8.4-10.2) mg/dL Magnesium (1.6-2.3) mg/dL Total Bilirubin (0.2-1.3) mg/dL AST (17-59) U/L ALT (4-49) U/L Alkaline Phosphatase (38-126) U/L Troponin I <0.012 (0.000-0.034) ng/mL Total Protein (6.3-8.2) g/dL Albumin (3.5-5.0) g/dL - Radiology Data Radiology results: report reviewed, image reviewed 2 views of the chest are obtained. Report was reviewed in its entirety. Impression by Dr. Cha shows extensive masslike density left upper lobe consistent with progression of tumor in this patient with a history of lung cancer. Right third rib increased density could be metastatic disease no heart failure. Normal heart. Ultrasound of the right upper quadrant abdomen is obtained. Report was reviewed in its entirety. Impression by Dr. Cha shows heterogeneity throughout the liver consistent with diffuse hepatic metastatic disease. No gallstones. There is gallbladder wall thickening that is consistent with cholecystitis. Small right renal cortical cyst. No renal obstruction. Disposition Clinical Impression: Lung cancer, Liver metastasis, Liver failure, Hospice care Disposition: ADMITTED IP TO THIS [facility] Condition: Serious Referrals: [facility],Clinic [Primary Care Provider] - 1-2 days Decision to Admit Reason: Admit from EC Decision Date: 10/06/21 Decision Time: 20:45
[2021-10-06 17:36] LABS: Anisocytosis Slight; Basophils % (A) 0 %; Eosinophils # (A) 0.1 k/uL (0-0.7); Eosinophils % (A) 1 %; HCT 52.2 % (39.0-53.0); HGB 16.5 gm/dL (13.0-17.5); Lymphocytes # (A) 0.9 k/uL (1.0-4.8); Lymphocytes % (A) 10 %; MCH 30.2 pg (25.0-35.0); MCHC 31.5 g/dL (31.0-37.0); MCV 95.7 fL (80.0-100.0); Mean Platelet Volume 8.7; Monocytes # (A) 0.6 k/uL (0-1.0); Monocytes % (A) 7 %; Neutrophils # (A) 7.6 k/uL (1.3-7.7); Neutrophils % (A) 81 %; Platelet Count 193 k/uL (150-450); RBC 5.45 m/uL (4.30-5.90); RDW 16.2 % (11.5-15.5); WBC 9.3 k/uL (3.8-10.6)
[2021-10-06 17:45] LABS: Albumin 3.2 g/dL (3.5-5.0); Calcium 9.8 mg/dL (8.4-10.2); Total Protein 6.8 g/dL (6.3-8.2)
[2021-10-06 17:56] LABS: INR 1.2 (<1.2); Partial Thromboplastin Time 44.6 sec (22.0-30.0); Prothrombin Time 12.3 sec (9.0-12.0)
--- NOTE | 2021-10-06 18:12 | XR ---
EXAMINATION TYPE: XR chest 2V DATE OF EXAM: 10/06/2021 COMPARISON: 02/28/2021 HISTORY: Weakness. Lung cancer. TECHNIQUE: 2 views FINDINGS: There is mass like density in the left upper lobe. This measures 16 x 8 cm. Heart size is n ormal. There is no heart failure. There is 3 x 1 cm area of increased density along the anterior righ t third rib that could be metastatic disease. There is no pleural effusion. IMPRESSION: Extensive masslike density left upper lobe consistent with progression of tumor in this p atient with a history of lung cancer. Right third rib increased density could be metastatic disease. No heart failure. Normal heart.
[2021-10-06 18:22] LABS: Potassium 5.4 mmol/L (3.5-5.1)
[2021-10-06 18:23] LABS: Magnesium 2.2 mg/dL (1.6-2.3)
[2021-10-06] MEDS ORDERED: METOCLOPRAMIDE 5 MG/ML 2 ML VIAL IVP STA (18:53)
[2021-10-06] MEDS ORDERED: diphenhydrAMINE 50 MG/ML 1 ML VIAL IVP STA (18:53)
--- NOTE | 2021-10-06 19:31 | US ---
EXAMINATION TYPE: US abdomen limited DATE OF EXAM: 10/06/2021 COMPARISON: NONE CLINICAL HISTORY: Elevated bili; Transaminitis. Patient presents to the ED coughing up blood. Patient was diagnosed with stage 4 lung cancer last December. EXAM MEASUREMENTS: Liver Length: 22.0 cm Gallbladder Wall: 0.69 cm CBD: 0.82 cm Right Kidney: 9.0 x 3.6 x 4.2 cm Pancreas: Obscured by bowel gas Liver: Diffusely heterogenous consistent with metastatic disease appearance Gallbladder: Thickened wall Evidence for sonographic Lombardo's sign: No CBD: Dilated Right Kidney: Anechoic area mid pole 1.4 x 0.9 x 1.1 cm Patient has hx of stage 4 lung cancer IMPRESSION: There is heterogeneity throughout the liver consistent with diffuse hepatic metastatic disease. No ga llstones. There is gallbladder wall thickening that is consistent with cholecystitis. Small right fern al cortical cyst. No renal obstruction.
[2021-10-06] MEDS: SODIUM CHLORIDE 0.9% 1,000 ML IV SCH (20:45)
[2021-10-06] MEDS ORDERED: HYDROmorphone 0.5 MG/0.5 ML SYRINGE IVP PRN (20:45)
[2021-10-06] MEDS ORDERED: DRY MOUTH SPRAY 44.3 SPRAY/44.3 ML SPRAY MUCOUS MEM PRN (21:00)
[2021-10-07] MEDS ORDERED: DIPHENOX-ATROP 2.5-0.025 MG 1 EACH TAB PO PRN (08:55)
[2021-10-07] MEDS ORDERED: PANTOPRAZOLE 40 MG TABLET PO PRN (08:55)
[2021-10-07] MEDS: ONDANSETRON 4 MG TAB PO PRN ×2 (09:54→09:55)
[2021-10-07] MEDS: SODIUM CHLORIDE 0.9% 1,000 ML IV SCH (09:54)
--- NOTE | 2021-10-07 14:55 | HP ---
HISTORY AND PHYSICAL CHIEF COMPLAINTS: Weakness, coughing of blood as well as nausea and vomiting. HISTORY OF PRESENT ILLNESS: This 71-year-old gentleman with a past medical history of adenocarcinoma of the left lung was complaining of significant cough and hemoptysis. The patient also had some abdominal pain. Patient was unable to keep anything down. Patient also had liver mets as well. The patient came to [facility] and was admitted for further evaluation and treatment. The patient also had features of renal failure. Plasma lactic acid was also elevated. Chest x-ray, personally evaluated by me, showed some haziness of the left upper lobe. PAST MEDICAL HISTORY: History of COPD, lung cancer, as mentioned earlier. MEDICATIONS: Medications include omeprazole, Zofran. Doses are reviewed. ALLERGIES: PENICILLIN. FAMILY HISTORY: No history of heart disease or strokes in the family. SOCIAL HISTORY: Previous history of smoking. REVIEW OF SYSTEMS: Fourteen-point review of systems negative except as mentioned above. PHYSICAL EXAMINATION: Pulse 87, blood pressure 120/84, respiration 15. HEENT: Conjunctivae normal. Oral mucosa moist. CARDIOVASCULAR: S1, S2 muffled. RESPIRATION: Breath sounds diminished at the bases. A few scattered rhonchi and crackles bilaterally. ABDOMEN: Soft. Hepatomegaly. Firm. Nontender. Mild distention. Bowel sounds present. No ascites. LEGS: No edema. No swelling. NERVOUS SYSTEM: Higher functions as mentioned earlier. Generally weak. SKIN: No ulcer, rash, bleeding. JOINTS: No active deforming arthropathy. LABS: WBC 9.3, hemoglobin 16.5. INR is 1.2. Sodium ntd potassium 5.4. Creatinine is 2.33 and lactic acid is 5.1. Total bilirubin is 8, AST 399, ALT is 165, alkaline phosphatase is 1060. ASSESSMENT: 1. Vomiting and acute gastritis. 2. Hemoptysis, possibly secondary to lung cancer. 3. Possible sepsis, present on admission. 4. 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 5. Dehydration as well as acute renal failure. 6. Acute elevated bilirubin. RECOMMENDATIONS AND DISCUSSION: In this 71-year-old gentleman who presented with multiple complex medical issues, we will monitor the patient closely. I would also recommend empiric antibiotics. Follow the cultures as well. Lactic acid is elevated. COVID is negative. Will consult Hematology/Oncology as well as Pulmonary. Guarded prognosis. Further recommendations to follow. MMODL / IJN: [id number] / MTDD
[2021-10-07 17:05] VITALS: BMI 24.1
[2021-10-07] MEDS: ONDANSETRON 4 MG/2 ML VIAL IVP PRN (20:05)
[2021-10-07] MEDS: PANTOPRAZOLE 40 MG/10 ML VIAL IVP SCH (20:06)
[2021-10-08] MEDS: SODIUM CHLORIDE 0.9% 1,000 ML IV SCH ×2 (07:44→08:33)
[2021-10-08] MEDS: PANTOPRAZOLE 40 MG/10 ML VIAL IVP SCH ×2 (08:33→20:36)
[2021-10-08 09:49] LABS: African American GFR (CKD) 46.7 (60.0-200.0); Albumin 2.2 g/dL (3.8-4.9); Anion Gap 14.4 mmol/L (10.00-18.00); BUN/Creat Ratio 13.29 Ratio (12.00-20.00); Blood Urea Nitrogen 22.6 mg/dL (9.0-27.0); Calcium 8.5 mg/dL (8.7-10.3); Carbon Dioxide 15.6 mmol/L (20.0-27.5); Globulin 2.2 g/dL (1.6-3.3); Non-African American GFR(CKD) 40.3 (60.0-200.0); Potassium 4.3 mmol/L (3.5-5.5); Total Bilirubin 6.1 mg/dL (0.30-1.20); Total Protein 4.4 g/dL (6.2-8.2)
[2021-10-08 10:42] LABS: Basophils # (A) 0.03 X 10*3/uL (0.00-0.10); Basophils % (A) 0.4 %; Eosinophils % (A) 2.6 %; HCT 39.3 % (39.6-50.0); HGB 13.3 g/dL (13.0-17.0); Immature Grans, Automated 1.7 %; Lymphocytes # (A) 1.45 X 10*3/uL (0.90-5.00); Lymphocytes % (A) 18.6 %; MCH 29.8 pg (27.0-32.0); MCHC 33.8 g/dL (32.0-37.0); MCV 87.9 fL (80.0-97.0); Mean Platelet Volume 12.1 fL (9.5-12.2); Monocytes # (A) 1.01 X 10*3/uL (0.20-1.00); Monocytes % (A) 12.9 %; NRBC Per 100 WBC 0.4 /100 WBCS (0.0-0.0); Neutrophils # (A) 4.99 X 10*3/uL (1.80-7.70); Neutrophils % (A) 63.8 %; Platelet Count 169 X 10*3/uL (140-440); RBC 4.47 X 10*6/uL (4.40-5.60); WBC 7.81 X 10*3/uL (4.50-10.00)
[2021-10-08] MEDS: ONDANSETRON 4 MG/2 ML VIAL IVP PRN ×2 (11:59→19:29)
--- NOTE | 2021-10-08 12:03 | P.CONS ---
History of Present Illness - Reason for Consult Consult date: 10/08/21 lung cancer Requesting physician: Harsha De Leon - Chief Complaint hemoptysis - History of Present Illness Mr. Marti is a very pleasant man who had lung cancer screening through [facility] December 2020 which revealed a cavitary CALVIN lung mass, mass in lingula extending to mediastinum and multiple nodules in right lung as well. 01/10/21 PET revealed suspicious uptake in the 2 left lung masses, 3 right lung nodules were not hypermetabolic. 02/28/21 CT chest revealed 3.8 x 2.3 cm CALVIN mass, another 5 x 4.3 cm mass in the middle of left lung, RLL lung nodule 1.2 cm, another 1.6 cm RLL nodule (with suspicious uptake upon further reviewing the PET scan with Radiologist) also the right lung nodules looked enlarged, and 9 mm RUL nodule, 2.6 x 2.2 cm mediastinal node. 03/01/21 brain MRI was negative for metastatic disease. 02/28/21 he underwent navigational bronchoscopy, FNA of CALVIN and medi astinal node were positive for adenocarcinoma consistent with lung primary. 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 He was having symptoms of occasional hemoptysis and mild exertional dyspnea at that time. He met with Dr. Chi twice and ultimately opted to not have any treatment. Pt presents to hospital with c/o hemoptysis, muscle spasms in the chest, abd distension, poor appetite, nausea and vomiting. He has lost wt recently, he is having increased difficulty managing at home. Pt has made his wishes clear, he wants to treat symptoms and be kept comfortable. He does understand he has a terminal illness. He and his family are meeting with hospice today to discuss options for going home. Review of Systems 10 point ROS is neg except as stated in HPI Past Medical History Past Medical History: Cancer, COPD, GERD/Reflux, Hypertension, Pneumonia Additional Past Medical History / Comment(s): L lung adenocarcinoma/mass, prostate cancer in 2011, past peptic ulcer perforation/surgical repair/bilateral pneumonia/sepsis and was intubated, diverticular disease, benign colon polyp. History of Any Multi-Drug Resistant Organisms: None Reported Additional Past Surgical History / Comment(s): Repair perforated stomach ulcer 09/2019, colonoscopy, bronchoscopy, cyst exc lower spine. Past Anesthesia/Blood Transfusion Reactions: No Reported Reaction Past Psychological History: No Psychological Hx Reported Smoking Status: Former smoker Past Alcohol Use History: None Reported Past Drug Use History: None Reported - Past Family History Mother Family Medical History: No Reported History Additional Family Medical History / Comment(s): Mother is 95 yrs old and healthy Father Family Medical History: COPD Additional Family Medical History / Comment(s): Father is . Medications and Allergies Home Medications Medication Instructions Recorded Confirmed Type Diphenoxylate HCl/Atropine 1 tab PO QID PRN 10/06/21 10/06/21 History [Lomotil 2.5-0.025 mg Tablet] Omeprazole 40 mg PO DAILY PRN 10/06/21 10/06/21 History Ondansetron [Zofran] 4 mg PO QID PRN 10/06/21 10/06/21 History Allergies Allergy/AdvReac Type Severity Reaction Status Date / Time Penicillins Allergy Rash/Hives Verified 10/06/21 16:52 Physical Exam Vitals: Vital Signs Temp Pulse Pulse Resp BP Pulse Ox 10/08/21 02:00 97.8 F 99 16 131/75 94 L 10/07/21 20:00 98.3 F 101 H 18 139/65 93 L 10/07/21 14:00 97.8 F 85 16 130/78 96 Intake and Output 10/07/21 10/08/21 10/08/21 22:59 06:59 14:59 Intake Total 670 590 Balance 670 590 Intake: Intake, IV Titration 50 Amount cefTRIAXone 1 gm In 50 Sodium Chloride 0.9% 50 ml @ 100 mls/hr IVPB Q24HR [facility] Rx#:[id number] Oral 620 590 Other: # Voids 4 2 Weight 72.121 kg - Constitutional General appearance: cooperative, no acute distress, thin - EENT Eyes: EOMI, scleral icterus ENT: hearing grossly normal - Respiratory Respiratory: bilateral: rhonchi - Cardiovascular Rhythm: regular Heart sounds: normal: S1, S2 Abnormal Heart Sounds: no systolic murmur, no diastolic murmur, no rub, no S3 Gallop, no S4 Gallop, no click, no other leg Peripheral Edema: bilateral: None - Gastrointestinal General gastrointestinal: no absent bowel sounds, no decreased bowel sounds, distended, hepatomegaly, no hyperactive bowel sounds, normal bowel sounds, no organomegaly, no rigid, no scaphoid, no soft, no splenomegaly, no tenderness, no umbilical hernia, no ventral hernia - Neurologic Neurologic: CNII-XII intact - Musculoskeletal Musculoskeletal: generalized weakness, strength equal bilaterally - Psychiatric Psychiatric: A&O x's 3, appropriate affect, intact judgment & insight Results CBC & Chem 7: 10/08/21 06:32 10/08/21 06:32 Labs: Abnormal Lab Results - Last 24 Hours (Table) 10/07/21 Range/Units 09:49 Plasma Lactic Acid Gustavo 3.1 H* (0.7-2.0) mmol/L Chest x-ray: report reviewed US - abdomen: report reviewed Assessment and Plan (1) Lung cancer Narrative/Plan: Diagnosed about 8 mo ago. Pt opted out of treatment. Progression of symptoms most consistent with disease progression. Pt wanting help to manage symptoms and to keep him comfortable. Hospice is meeting with pt and family. Current Visit: Yes Status: Chronic Priority: High Code(s): C34.90 - MALIGNANT NEOPLASM OF UNSP PART OF UNSP BRONCHUS OR LUNG SNOMED Code(s): 323337312 Plan: attests: I have performed H&P, seen and examined pt, developed impression and plan of care. Discussed with dictator. Agree with dictation, documented as a scribe.
--- NOTE | 2021-10-08 13:34 | PN ---
PROGRESS NOTE DATE OF SERVICE: 10/08/2021 This 71-year-old gentleman admitted with weakness and coughing and acute gastritis also had hemoptysis and lung cancer. The patient is NO CODE. Hospice is also being consulted. No chest pain. No palpitation. PHYSICAL EXAMINATION: Pulse 94, blood pressure 130/70, respiration 16. CHEST: A few scattered rhonchi and crackles. CARDIOVASCULAR: S1, S2 muffled. ABDOMEN: Soft, nontender. NERVOUS SYSTEM: Diffusely weak. HEENT: Conjunctivae icteric. LABS: WBC 7.81, bilirubin is 8.5. ASSESSMENT: 1. Vomiting and acute gastritis. 2. Hemoptysis, possibly secondary to lung cancer. 3. 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 4. Dehydration as well as acute renal failure, present on admission. 5. Elevated bilirubin secondary to hepatic metastases. 6. NO CODE, NO CPR, NO VENT. RECOMMENDATIONS AND DISCUSSION: I recommend to continue current medications, continue with the monitoring, symptomatic treatment. Discussed with the patient. Patient is NO CODE. Hospice consult. Further recommendations to follow. MMODL / IJN: [id number] /
[2021-10-09 05:17] VITALS: BP 146/89; PULSE 103; RESP 18; TEMP 98.4
[2021-10-09] MEDS ORDERED: HYDROmorphone 1 MG/ML 1 ML SYRINGE IVP PRN (05:30)
[2021-10-09] MEDS: SODIUM CHLORIDE 0.9% 1,000 ML IV SCH (05:47)
[2021-10-09] MEDS: PANTOPRAZOLE 40 MG/10 ML VIAL IVP SCH (09:11)
--- NOTE | 2021-10-10 16:09 | P.DS ---
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 Patient will follow-up with [facility] upon discharge. Patient will continue with short course of oral Ceftin 500 mg twice daily for the next 3 days to complete the course. Total time taken is greater than 35 minutes. Hospital course This is a 71-year-old male who was recently admitted with weakness and coughing an acute gastritis also hemoptysis and lung cancer. Patient is a no code and was seen and evaluated by oncology back in the summer after diagnosis and has been refusing all cancer treatments. Patient presented to the ER with hospice consult in mind and unable to tolerate any diet and continued vomiting and abdominal pain. Patient was seen and evaluated by oncology and a lengthy discussion was had about overall prognosis with family and the patient. Patient has not with [facility] hospice and will be going home with hospice today. She encouraged bland diet and to continue with oral intake as tolerated. Currently no reports of chest pain, shortness of breath, or palpitations. Patient is afebrile. No reports of nausea or vomiting and patient is tolerating diet. Patient will be discharged home today with hospice. Guarded prognosis. On exam vital signs are stable. Cardio S1, S2 are muffled. Respiratory shows diminished breath sounds at the bases with a few scattered rhonchi noted. Abdomen is soft and nontender. Nervous system shows no focal deficits. Please refer to medication reconciliation sheet for a list of medications. The impression and plan of care has been dictated by Christine Yip, nurse practitioner as directed. MD Simone I have performed a history and examination and MDM of this patient, discussed the same with the dictator, and agree with the dictator's assessment and plan as written ,documented as a scribe. Based on total visit time, I have performed more than 50% of the visit. Any additional findings or plans will be noted. Patient Condition at Discharge: Fair Plan - Discharge Summary Discharge Rx Participant: No New Discharge Prescriptions: New Cefuroxime Axetil [Ceftin] 500 mg PO BID 3 Days #6 tab Pantoprazole Sodium [Protonix] 40 mg PO BID #60 tab Continue Diphenoxylate HCl/Atropine [Lomotil 2.5-0.025 mg Tablet] 1 tab PO QID PRN PRN Reason: Diarrhea Ondansetron [Zofran] 4 mg PO QID PRN PRN Reason: Nausea Omeprazole 40 mg PO DAILY PRN PRN Reason: GERDS Discharge Medication List Diphenoxylate HCl/Atropine [Lomotil 2.5-0.025 mg Tablet] 1 tab PO QID PRN 10/06/21 [History] Omeprazole 40 mg PO DAILY PRN 10/06/21 [History] Ondansetron [Zofran] 4 mg PO QID PRN 10/06/21 [History] Cefuroxime Axetil [Ceftin] 500 mg PO BID 3 Days #6 tab 10/09/21 [Rx] Pantoprazole Sodium [Protonix] 40 mg PO BID #60 tab 10/09/21 [Rx] Follow up Appointment(s)/Referral(s): [facility],Clinic [Primary Care Provider] - 1-2 days (Hospice at discharge) Patient Instructions/Handouts: Cefuroxime (By mouth), Pantoprazole (By mouth), Hospice (DC) Activity/Diet/Wound Care/Special Instructions: Activity Limited until follow-up Follow-up primary care provider on discharge Continue taking medications as prescribed Continue with current diet and slowly advance as tolerated and is having nausea use anti-emetics and follow-up bland diet Continue with [facility] hospice Discharge Disposition: HOME WITH HOSPICE
== END 2021-10-09 14:10 | disposition hospice, home (50) | DRG 181 ==
LOC: EC 12:03 → 5NMEDONC 20:43
PROVIDERS: ADMIT Hospitalist; ATTEND Hospitalist
DX: C34.32 Malignant neoplasm of lower lobe, left bronchus or lung (principal); C78.7 Secondary malignant neoplasm of liver and intrahepatic bile duct; N17.9 Acute kidney failure, unspecified; K29.00 Acute gastritis without bleeding; E86.0 Dehydration; I10 Essential (primary) hypertension; K81.9 Cholecystitis, unspecified; Z20.822 Contact with and (suspected) exposure to COVID-19; J44.9 Chronic obstructive pulmonary disease, unspecified; K72.90 Hepatic failure, unspecified without coma; Z85.46 Personal history of malignant neoplasm of prostate; Z51.5 Encounter for palliative care; Z87.11 Personal history of peptic ulcer disease; Z87.19 Personal history of other diseases of the digestive system; Z86.010 Personal history of colon polyps; Z87.891 Personal history of nicotine dependence; Z88.0 Allergy status to penicillin; Z82.5 Family history of asthma and other chronic lower respiratory diseases
CPT/HCPCS: 36415; 71046; 76705; 80053; 83605; 83735; 84484; 85025; 85610; 85730; 87635; 93005; 96374; 96375; 99285